=== PATIENT | male | born 1990 | race Caucasian/White ===

== ENCOUNTER 2017-08-26 14:41 | Emergency (ER) | payer OTHER ==
[2017-08-26 15:09] VITALS: TEMP 99; O2SAT 93
--- NOTE | 2017-08-26 16:46 | EDPHY ---
H & P Stated Complaint: Abd Pain Time Seen by Provider: 08/26/17 16:45 - Personal History Current Tetanus Diphtheria and Acellular Pertussis (TDAP): Yes - Medical/Surgical History Hx Asthma: No Hx Chronic Respiratory Disease: No Hx Diabetes: No Hx Cardiac Disease: No Hx Renal Disease: No Hx Cirrhosis: No Hx Alcoholism: No Hx HIV/AIDS: No Hx Splenectomy or Spleen Trauma: No Other PMH: Denies - Social History Smoking Status: Never smoked Constitutional: Initial Vital Signs Temperature (C) 37.2 C 08/26/17 15:06 Heart Rate 117 H 08/26/17 15:06 Respiratory Rate 18 08/26/17 15:06 Blood Pressure 133/76 H 08/26/17 15:06 O2 Sat (%) 93 08/26/17 15:06 O2 Delivery Mode Room Air Allergies/Adverse Reactions: No Known Allergies Allergy (Unverified 08/26/17 15:06) Home Medications: Medication Instructions Recorded Ondansetron Odt [Zofran Odt 4 mg 4 mg PO Q4 PRN #10 tab 08/26/17 (RX)] Medical Decision Making - Diagnostics Imaging Results: Imaging Impressions Abdomen CT 08/26/17 17:07 Impression: 1. Normal CT appearance of the appendix. 2. Gastrointestinal dysmotility syndrome, with no mechanical obstruction. 3. Hepatic steatosis. Findings were discussed with Frank Mora MD at 18:06, on 08/26/2017. Imaging: Discussed imaging studies w/ yard caller Radiologist, I viewed and interpreted images myself ED Course/Re-evaluation: CHIEF COMPLAINT: Abdominal pain HISTORY OF PRESENT ILLNESS: The patient is a 26 y/o male complaining of upper left abdominal pain radiating to the upper middle abdomen for 2 days. The pain woke him from his sleep Saturday night and has been constant since. The upper middle pain is sharp. He had several episodes of diarrhea on Saturday. No vomiting, urinary complaints, chest pain, shortness of breath, numbness, fever. Last P.O. at 10:00, 7 hours ago. REVIEW OF SYSTEMS: A 10 point review of systems was performed and is negative with the exception of the elements mentioned in the history of present illness. PHYSICAL EXAM: HR, BP, O2 Sat, RR. Temp noted General Appearance: Alert, well hydrated, appropriate, and non-toxic appearing. Head: Atraumatic without scalp tenderness or obvious injury Eyes: Pupils equal, round, reactive to light and accommodation, EOMI, no trauma , no injection. Ears: Clear bilaterally, no perforation, normal landmarks Nose: Atraumatic, no rhinorrhea, clear. Throat: Mucus membranes moist. Neck: Supple, nontender, no lymphadenopathy. Respiratory: No retractions, no distress, no wheezes, and no accessory muscle use. Lungs are clear to auscultation bilaterally. Cardiovascular: Regular rate and rhythm, no murmurs, rubs, or gallops. Good capillary refill all extremities. Gastrointestinal: RLQ tenderness with palpation. Abdomen is soft, non-distended , no masses, no rebound, no guarding, no peritoneal signs. Musculoskeletal: Normal active ROM of all extremities, atraumatic. Neurological: Alert, appropriate, and interactive. Non-focal neuro Skin: No rashes, good turgor, no nodules on palpation. Past medical history: Denies Past surgical history: Denies Family history: Noncontributory Social history: Lives in [place], [facility] DIAGNOSTICS/PROCEDURES/CRITICAL CARE TIME: Abdominal CT: gastroenteritis without obstruction. Fluid in several loops of bowel. DIFFERENTIAL DIAGNOSIS: The differential diagnosis for the patient's abdominal pain included but was not limited to appendicitis, cholecystitis, hernias, testicular torsion, gastritis, gastroenteritis, and urinary tract infection. MEDICAL DECISION MAKING: The patient is a 26 y/o male presenting with upper left and upper middle abdominal pain. On exam he has RLQ tenderness with palpation. Abdominal CT, LFT' s, Lipase, and BMP ordered. Patient is declining pain medication at this time. 1739: Patient has a mildly elevated WBD of 10.41. Other labs are normal. 1808: Spoke with Dr. Lehman, radiologist, the patient has gastroenteritis without obstruction. There is also fluid in several loops of bowel. 1814: Reassessed patient and discussed imaging and laboratory findings. I have prescribed him Zofran for nausea. Return precautions provided; patient is comfortable with this plan. - Data Points Laboratory Results: Laboratory Results 08/26/17 16:55 08/26/17 16:55 08/26/1718 08/26/17 16:55 16:55 16:55 WBC 10.41 10^3/uL H 10^3/uL (3.80-9.50) RBC 5.50 10^6/uL 10^6/uL (4.40-6.38) Hgb 16.6 g/dL g/dL (13.7-17.5) Hct 48.2 % % (40.0-51.0) MCV 87.6 fL fL (81.5-99.8) MCH 30.2 pg pg (27.9-34.1) MCHC 34.4 g/dL g/dL (32.4-36.7) RDW 12.1 % % (11.5-15.2) Plt Count 220 10^3/uL 10^3/uL (150-400) MPV 10.2 fL fL (8.7-11.7) Neut % (Auto) 87.8 % H % (39.3-74.2) Lymph % (Auto) 6.6 % L % (15.0-45.0) [place] % (Auto) 5.1 % % (4.5-13.0) Eos % (Auto) 0.0 % L % (0.6-7.6) Baso % (Auto) 0.3 % % (0.3-1.7) Nucleat RBC Rel Count 0.0 % % (0.0-0.2) Absolute Neuts (auto) 9.14 10^3/uL H 10^3/uL (1.70-6.50) Absolute Lymphs (auto) 0.69 10^3/uL L 10^3/uL (1.00-3.00) Absolute Monos (auto) 0.53 10^3/uL 10^3/uL (0.30-0.80) Absolute Eos (auto) 0.00 10^3/uL L 10^3/uL (0.03-0.40) Absolute Basos (auto) 0.03 10^3/uL 10^3/uL (0.02-0.10) Absolute Nucleated RBC 0.00 10^3/uL 10^3/uL (0-0.01) Immature Gran % 0.2 % % (0.0-1.1) Immature Gran # 0.02 10^3/uL 10^3/uL (0.00-0.10) Sodium 138 mEq/L mEq/L (135-145) Potassium 4.1 mEq/L mEq/L (3.5-5.2) Chloride 102 mEq/L mEq/L (97-110) Carbon Dioxide 23 mEq/l mEq/l (22-31) Anion Gap 13 mEq/L mEq/L (8-16) BUN 12 mg/dL mg/dL (7-23) Creatinine 1.0 mg/dL mg/dL (0.7-1.3) Estimated GFR > 60 Glucose 94 mg/dL mg/dL (70-100) Calcium 9.6 mg/dL mg/dL (8.5-10.4) Total Bilirubin 1.0 mg/dL mg/dL (0.1-1.4) Conjugated Bilirubin 0.3 mg/dL mg/dL (0.0-0.5) Unconjugated Bilirubin 0.7 mg/dL mg/dL (0.0-1.1) AST 42 IU/L IU/L (17-59) ALT 95 IU/L H IU/L (21-72) Alkaline Phosphatase 84 IU/L IU/L (38-126) Total Protein 7.4 g/dL g/dL (6.3-8.2) Albumin 4.7 g/dL g/dL (3.5-5.0) Lipase 118 IU/L IU/L (23-300) Departure - Departure Disposition: Home, Routine, Self-Care Clinical Impression: Acute gastroenteritis Condition: Good Instructions: Gastroenteritis (ED) Additional Instructions: 1. Increase fluid intake. 2. Take 4mg oral Zofran as needed for nausea. 3. Follow-up with your primary doctor within 72 hours. 4. Return to the Emergency Department for fever, chest pain, shortness of breath , increasing pain, or other worsening of condition. Referrals: [facility],. [Clinic] - As per Instructions Margaux Casas MD [Medical Doctor] - As per Instructions Prescriptions: Ondansetron Odt [Zofran Odt 4 mg (RX)] 4 mg PO Q4 PRN #10 tab PRN Reason: Nausea/Vomiting, Use 1st Report Scribed for: Frank Mora Report Scribed by: Hollie Patrick Date of Report: 08/26/17 Time of Report: 16:48
[2017-08-26 17:00] LABS: PLATELET COUNT 220 10^3/uL (150-400)
[2017-08-26 17:14] VITALS: BP 121/81; PULSE 92; RESP 16
[2017-08-26] MEDS ORDERED: IOPAMIDOL (ISOVUE-300) 100 ML BTL ONE (17:27)
== END 2017-08-26 18:13 | disposition home or self-care (01) ==
DX: K52.9 Noninfective gastroenteritis and colitis, unspecified (principal)
CPT/HCPCS: Q9967